=== PATIENT | male | born 1945 | race Caucasian/White ===

== ENCOUNTER 2016-09-24 16:51 | Emergency (ER) | payer OTHER ==
[2016-09-24 17:20] LABS: BASOPHILS 0 % (0.0-2.0); EOSINOPHILS 1.3 % (0-7); HEMATOCRIT 34.6 % (42.0-54.0); HEMOGLOBIN 11.9 g/dL (13.5-17.5); IMMATURE GRANULOCYTES 0.6 % (0-5); LYMPHOCYTES 15.8 % (15-50); MCH 31.8 pg (26.0-34.0); MCHC 34.4 g/dL (31.0-37.0); MCV 92.5 fL (80.0-100.0); MEAN PLATELET VOLUME 9.2 fL (7.4-10.4); MONOCYTES 19.4 % (2-11); NEUTROPHILS 62.9 % (40-80); RBC 3.74 10x6/uL (4.20-6.10); RDW 13.1 % (11.5-14.5); WBC 6.7 10x3/uL (4.8-10.8)
[2016-09-24 17:22] LABS: PLATELET COUNT 220 10x3/uL (130-400)
[2016-09-24 17:29] LABS: INR 0.99 (0.85-1.17); PROTIME 12.9 SECONDS (11.6-15.0)
[2016-09-24 17:39] LABS: ALBUMIN 3.1 g/dL (3.4-5.0); ALKALINE PHOSPHATASE 94 U/L (46-116); ALT (SGPT) 33 U/L (10-68); BILIRUBIN - TOTAL 0.29 mg/dL (0.2-1.3); CALC OSMOLALITY 258 mosm/kg (275-300); CALCIUM 8.1 mg/dL (8.5-10.1); CARBON DIOXIDE 24.9 mmol/L (21.0-32.0); CHLORIDE - SERUM 96 mmol/L (98-107); CREATININE - SERUM 0.9 mg/dL (0.6-1.3); GLUCOSE 98 mg/dL (74-106); POTASSIUM - SERUM 4.1 mmol/L (3.5-5.1); PROTEIN - SERUM 6.5 g/dL (6.4-8.2); SODIUM 130 mmol/L (136-145); UREA NITROGEN 6 mg/dL (7-18); eGFR NON AFRICAN AMERICAN 89 mL/min (90-120)
[2016-09-24 17:40] LABS: MAGNESIUM - SERUM 1.8 mg/dL (1.8-2.4)
== END 2016-09-24 21:00 | disposition home or self-care (01) ==
LOC: D.ER 16:51
PROVIDERS: Emergency Medicine
DX: F10.129 Alcohol abuse with intoxication, unspecified (principal); F10.10 Alcohol abuse, uncomplicated; F31.9 Bipolar disorder, unspecified; I10 Essential (primary) hypertension; F12.10 Cannabis abuse, uncomplicated; F17.200 Nicotine dependence, unspecified, uncomplicated

== ENCOUNTER 2016-09-25 12:32 | Emergency (ER) | payer OTHER, MEDICARE ==
[2016-09-25 13:25] LABS: BASOPHILS 0.2 % (0.0-2.0); HEMATOCRIT 35.1 % (42.0-54.0); HEMOGLOBIN 12.1 g/dL (13.5-17.5); IMMATURE GRANULOCYTES 1.6 % (0-5); LYMPHOCYTES 19.1 % (15-50); MCH 31.6 pg (26.0-34.0); MCHC 34.5 g/dL (31.0-37.0); MCV 91.6 fL (80.0-100.0); MEAN PLATELET VOLUME 9.1 fL (7.4-10.4); MONOCYTES 18.9 % (2-11); NEUTROPHILS 58.2 % (40-80); RBC 3.83 10x6/uL (4.20-6.10); RDW 13.1 % (11.5-14.5); WBC 5.1 10x3/uL (4.8-10.8)
[2016-09-25 13:31] LABS: PLATELET COUNT 266 10x3/uL (130-400)
[2016-09-25 13:48] LABS: INR 0.95 (0.85-1.17); PROTIME 12.5 SECONDS (11.6-15.0)
[2016-09-25 14:02] LABS: ALBUMIN 3.1 g/dL (3.4-5.0); ALKALINE PHOSPHATASE 92 U/L (46-116); ALT (SGPT) 30 U/L (10-68); BILIRUBIN - TOTAL 0.19 mg/dL (0.2-1.3); CALC OSMOLALITY 265 mosm/kg (275-300); CARBON DIOXIDE 24.4 mmol/L (21.0-32.0); CHLORIDE - SERUM 99 mmol/L (98-107); CREATININE - SERUM 0.9 mg/dL (0.6-1.3); GLUCOSE 94 mg/dL (74-106); POTASSIUM - SERUM 4.7 mmol/L (3.5-5.1); PROTEIN - SERUM 6.4 g/dL (6.4-8.2); SODIUM 134 mmol/L (136-145); UREA NITROGEN 7 mg/dL (7-18); eGFR NON AFRICAN AMERICAN 89 mL/min (90-120)
[2016-09-25 14:03] LABS: MAGNESIUM - SERUM 1.8 mg/dL (1.8-2.4)
== END 2016-09-25 14:41 | disposition home or self-care (01) ==
LOC: D.ER 12:32
PROVIDERS: Emergency Medicine
DX: F10.129 Alcohol abuse with intoxication, unspecified (principal); F10.10 Alcohol abuse, uncomplicated; I10 Essential (primary) hypertension; F31.9 Bipolar disorder, unspecified; F12.10 Cannabis abuse, uncomplicated

== ENCOUNTER 2018-04-07 14:41 | Emergency (ER) | payer OTHER ==
[~2018-04-07] VITALS: Ht 180.3 cm; Wt 72.7 kg
[2018-04-07 14:44] VITALS: BP 105/76; Ht 180.3 cm; Wt 72.7 kg
[2018-04-07] MEDS ORDERED: COREG25 MG (14:46)
[2018-04-07] MEDS ORDERED: BAYER CHEWABLE81 MG (14:46)
[2018-04-07] MEDS ORDERED: VOLTAREN75 MG PO (15:36)
== END 2018-04-07 15:41 | disposition home or self-care (01) ==
LOC: D.ER 14:41
DX: M79.662 Pain in left lower leg (principal); F17.200 Nicotine dependence, unspecified, uncomplicated